=== PATIENT | female | born 1985 | race Hispanic/Latino ===

== ENCOUNTER 2017-10-19 05:08 | Emergency (ER) | payer BC ==
[2017-10-19] MEDS ORDERED: ACETAMINOPHEN EXTRA STRENGTH 500 MG TABLET ONE (05:25)
[2017-10-19] MEDS ORDERED: CEFTRIAXONE SODIUM 1 GM ONE (05:25)
[2017-10-19] MEDS ORDERED: LIDOCAINE HCL 2% 20ML ONE (05:28)
== END 2017-10-19 05:40 | disposition home or self-care (01) ==
LOC: EDH 05:08
DX: J02.9 Acute pharyngitis, unspecified (principal); H92.01 Otalgia, right ear; Z98.890 Other specified postprocedural states
CPT/HCPCS: 96372; 99283; J0696; J3490